=== PATIENT | male | born 1985 | race Caucasian/White ===

== ENCOUNTER 2021-11-21 13:08 | Emergency (ER) | payer MEDICARE ==
[~2021-11-21 13:08] MED LIST: BUSPIRONE HCL5 MG PO; IBUPROFEN800 MG PO
== END 2021-11-21 13:55 | disposition left against medical advice (07) ==
LOC: ER1 13:08
DX: Z53.21 Procedure and treatment not carried out due to patient leaving prior to being seen by health care provider (principal)